=== PATIENT | male | born 1975 | race Caucasian/White ===

== ENCOUNTER 2017-06-15 12:16 | Emergency (ER) | payer MEDICARE | END 2017-06-15 13:35 | disposition home or self-care (01) | LOC: SCSER 12:16 | DX: J11.1 Influenza due to unidentified influenza virus with other respiratory manifestations (principal); J20.9 Acute bronchitis, unspecified; I10 Essential (primary) hypertension; F41.9 Anxiety disorder, unspecified; F32.9 Major depressive disorder, single episode, unspecified; F17.220 Nicotine dependence, chewing tobacco, uncomplicated; Z79.899 Other long term (current) drug therapy | CPT/HCPCS: 99283 ==

== ENCOUNTER 2017-06-24 13:45 | Emergency (ER) | payer MEDICARE ==
[2017-06-24] MEDS ORDERED: Dexamethasone 10 MG/ML VIAL ONE (14:09)
--- NOTE | 2017-06-24 15:07 | RAD ---
PA AND LATERAL CHEST: History: Cough, shortness of breath. FINDINGS: The heart size is normal. The lungs are expanded without focal areas of consolidation, pneumothorax, or pleural effusions. No acute osseous abnormality was seen. IMPRESSION: No radiographic evidence of acute cardiopulmonary process. POS: C
== END 2017-06-24 14:55 | disposition home or self-care (01) ==
LOC: SCSER 13:45
DX: J11.1 Influenza due to unidentified influenza virus with other respiratory manifestations (principal); I10 Essential (primary) hypertension; F41.9 Anxiety disorder, unspecified; F32.9 Major depressive disorder, single episode, unspecified; F17.220 Nicotine dependence, chewing tobacco, uncomplicated; Z79.899 Other long term (current) drug therapy
CPT/HCPCS: 71046; 96372; 99406; J1100; J7620